=== PATIENT | female | born 1960 | race Caucasian/White ===

== ENCOUNTER 2024-10-05 16:22 | Observation (INO) ==
[2024-10-05 18:20] LABS: Basophils # (auto) 0.04 K/uL (0.00-0.20); Basophils % (auto) 0.5 %; Eosinophils # (auto) 0.17 K/uL (0.00-0.50); Eosinophils % (auto) 1.9 %; Hematocrit (blood only) 46.2 % (37.0-47.0); Hemoglobin 15.4 g/dl (12.0-16.0); Immature Granulocytes # (auto) 0.03 K/uL (0.01-0.20); Immature Granulocytes % (auto) 0.3 %; Lymphocytes # (auto) 3.94 K/uL (1.20-3.40); Lymphocytes % (auto) 44.6 %; Mean Corpuscular Hemoglobin 32.9 pg (25.0-34.0); Mean Corpuscular Hgb Conc 33.3 g/dL (32.0-36.0); Mean Corpuscular Volume 98.7 fL (80.0-100.0); Mean Platelet Volume 11.1 fL (9.4-12.4); Monocytes # (auto) 0.89 K/uL (0.11-0.59); Monocytes % (auto) 10.1 %; Neutrophils # (auto) 3.77 K/uL (1.40-6.50); Neutrophils % (auto) 42.6 %; Platelet Count 255 K/uL (130-400); RDW Coefficient of Variation 12.2 % (11.5-14.5); RDW Standard Deviation 44.9 fL (36.4-46.3); Red Blood Count 4.68 M/uL (4.20-5.40); White Blood Count 8.84 K/ul (4.8-10.8)
[2024-10-05 18:24] LABS: Albumin Globulin Ratio 1.4 (0.9-2); Albumin Level 4.3 gm/dl (3.4-5.0); BUN Creatinine Ratio 27.3 (10-20); Bilirubin,Total 0.4 mg/dl (0.2-1.0); Calcium 10.9 mg/dl (8.6-10.3); Creatinine Clr Calc Pharmacy 94.8 ml/min; Globulin 3.1 gm/dl (2.5-4.0); Potassium 4.4 mmol/L (3.5-5.1); Total Protein 7.4 gm/dl (6.0-8.3)
[2024-10-05 18:30] LABS: Troponin I High Sensitivity 18.5 pg/ml (0-14)
[2024-10-05 18:43] LABS: Partial Thromboplastin Ratio 0.9; Partial Thromboplastin Time 25 Seconds (21-31); Prothrombin Time 10.6 Seconds (9.0-12.0)
[2024-10-05] MEDS: ASPIRIN CHEW 324 MG PO STA (19:31)
--- NOTE | 2024-10-05 19:31 | History & Physical Report ---
Date of Service October 05, 2024 Assessment & Plan (1) Chest pain: (2) Hypercalcemia: Plan 64-year-old female PMHx hypothyroidism, HTN, hypercalcemia, hyperparathyroidism, and RAD presenting to ED for chest pain and shortness of breath. Was evaluated in ED on 09/29 for similar symptoms and was discharged from ED to home with inhaler. At 0200 started to develop central chest pain spreading across the entire chest with associated shortness of breath specifically when taking a deep breath. Symptoms are not exacerbated in any way, the chest pain did resolve slightly with carvedilol per patient. Evaluated by PCP who recommended coming to ED. Troponin was found to be slightly elevated on admission, but EKG without evidence of ischemia. CXR per my read is not showing gross signs of PNA or effusions, but does have increased vascularization. Patient was provided with 324 mg of aspirin in ED. 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 Currently chest pain free, no SOB or coughing at time of admission. Without h/o cardiac disease. - EKG NSR, possible LAE, LVH, rate 70 bpm; Troponin 18.5, pending repeat- will trend until peak - CBC without evidence of anemia or leukocytosis - CXR with increased vascularity per my read, pending official read; most recent echo from 12/2022 with normal LV systolic function, mild LVH, EF 65 to 70%, pending repeat - Lipids 09/2023, total 164, LDL 88, HDL 56, triglycerides 101; pending repeat a.m.; A1c a.m. - ASA 324 mg po given in ED - Tylenol po q4hr as needed; Maalox 30mL po q4hr indigestion as needed - Added IC + FV given SOB + ? mucus production with coughing - no indications for abx at time of admission - Cardiology not consulted at time of admission- recommend possible consult in a.m. +/- stress testing #Hypercalcemia, chronic Asymptomatic currently, with history of chronic hypercalcemia, identified January 2021. Per complaint specialist, no indications for surgical intervention as of most recent visit. - Ca 10.9 on admission (WNL albumin) - Patient does take vitamin D daily- continue; BMP am #Hypothyroidism/hyperparathyroidism H/o thyroid surgery ~ 6 years ago in [place] for goiter, w/o evidence of CA; history of hyperparathyroidism, follows with endocrinology most recently 06/11/2024. - Most recent TSH 0.6 (February 2024) - Levothyroxine (225mcg daily)- continue #HTN H/o HTN, follows with PCP but has seen hand tire trimmer in the past (2019); previously on HCTZ, but discontinued secondary to hypercalcemia - On carvedilol and valsartan- continue - Took daily medications - BP elevated upon arrival to ED; during time of visit, SBP 140s, DBP 70s - monitor #Prediabetes- A1c September 2022 at 6.3%, pending repeat; managed with diet #H/o endometrial CA- s/p hysterectomy (08/2018) Of note, patient speaks French; interpreting services via iPad and spike (Louisa) helped to translate at time of admission. Interpreting services should be made available to the patient at all times if needed. Louisa- To be called with changes/updates/concerns @ [phone] Dispo: Admit med/tele VTE prophylaxis: Lovenox This document was dictated utilizing [employer]. Please excuse any grammatical errors that may be secondary to use of this software. Admission and Anticipated Discharge Date Admission Date: 10/05/2024 History of Present Illness Chief Complaint: SOB + CP Primary Care Provider: Gale Welch MD 64-year-old female PMHx hypothyroidism, HTN, hypercalcemia, hyperparathyroidism, and RAD presenting to ED for chest pain and shortness of breath. Was evaluated in ED on 09/29 for similar symptoms and was discharged from ED to home with inhaler. Evaluated at PCP today and had mentioned that she was having chest pain and shortness of breath that started overnight, so PCP encouraged patient to come to ED. Pt's history is obtained via niece and hydrodynamicist service. States that her shortness of breath seem to have gotten better since her last ER visit, but then returned around 3 days ago and she has been coughing up some mucus that is clear in color. Additionally on the night prior to arrival at around 0200 she had severe sharp central chest pain that she felt spread across her entire chest. She believes that this pain improved when she took her carvedilol, but the pain continued to occur when she would take a deep breath. She had no additional symptoms of nausea/vomiting or abdominal pain, no diaphoresis. Was evaluated at PCP and mention that the chest pain was lingering, so PCP recommended to go to ED. While patient was in the waiting room, she started to have left scapular pain as well. States that this was minimal, but noticeable. Patient has not had this happen before. She is denying additional symptoms to include abdominal pain, N/V/D/C, indigestion, LUTS, fever/chills, dizzin ess/syncope, or URI symptoms. Upon workup, no leukocytosis, but troponin was found to be 18.5, pending repeat. EKG reveals no signs of ischemia. Patient was provided with aspirin 324 Mg in ED. Patient took daily medications. Please see Dr. Pina's attestation for adjustments/additions to treatment plan. Allergies Allergy/AdvReac Type Severity Reaction Status Date / Time Iodinated Contrast Media AdvReac Intermediate skin Verified 10/05/24 14:34 redness per pt and son hydrochlorothiazide AdvReac Mild high Verified 10/05/24 14:34 calcium Home Medications Medication Instructions Recorded Confirmed Type acetaminophen 500 mg tablet 1,000 mg PO DIRECTED PRN 01/24/22 10/05/24 History (Tylenol Extra Strength) PAIN/FEVER levothyroxine 25 mcg tablet 25 mcg PO QAM 04/15/24 10/05/24 History valsartan 320 mg tablet 320 mg PO QAM 04/15/24 10/05/24 History cholecalciferol (vitamin D3) 50 100 mcg PO QDL 05/12/24 10/05/24 History mcg (2,000 unit) capsule (Vitamin D3) levothyroxine 200 mcg tablet 200 mcg PO QAM #90 tabs 09/04/24 10/05/24 Rx carvedilol 6.25 mg tablet 6.25 mg PO BID #180 tabs 09/15/24 10/05/24 Rx Past Med/Surg History Problem List RAD (reactive airway disease) (Acute) Hypertension (Acute) H/O malignant neoplasm of endometrium Hypothyroidism History of colon polyps Vitamin D deficiency Knee osteoarthritis Knee pain, bilateral Dermatochalasis of eyelids of both eyes Drooping eyelid Hyperparathyroidism Post-COVID chronic fatigue Anxiety Hip pain, bilateral Hypercalcemia Prediabetes Arthralgia of right hip Degenerative arthritis of lumbar spine Grade I diastolic dysfunction Left ventricular dysfunction Urinary incontinence Back pain Hypertension (Chronic) Hypothyroidism (Chronic) Fatty liver Medical History Cataract Pain in both lower legs Stomach ulcer Vitamin D deficiency Prediabetes History of stomach ulcers Knee osteoarthritis Hyperparathyroidism Degenerative arthritis of lumbar spine History of back pain History of anxiety Fatty liver History of COVID-19 hx of 1 or 2 yr ago. Endometrial cancer 2016- denies hx cancer Hypertension Surgical History History of bilateral cataract extraction History of blepharoplasty bilateral 05/31/23 History of colonoscopy Hx laparoscopic cholecystectomy (05/31/20) Laparoscopic Cholecystectomy Dr. Alvarez 05/31/2020 History of hysterectomy History of esophagogastroduodenoscopy (EGD) History of dilatation and curettage History of thyroidectomy, total Family History Mother Hypertension Hypotension Denies family history of Ovarian cancer Prostate cancer Myocardial infarction Breast cancer Colorectal cancer Social History Smoking Status: Never smoker Second Hand Exposure: No; Do You Dip or Chew Tobacco: No; Hx Alcohol Use: No Hx Substance Use: No Preferred Language: French Communication Ability: Effective Communication Ability Comment: Phone interview with daughter- speaks fluent lithuanian Communication Tools: IPad and Language Line Engineer Internship Visual Impairment: No Limitations Engineer Internship Required: Yes Beliefs That Will Affect Care: None Current Living Situation: Family Current Living Situation Comment: son Other Information That Helps Us Care for You: No Feels Safe at Home: Yes Assistive Devices: Glasses Review of Systems Review of Systems: All systems reviewed & are unremarkable except as noted in Subjective Physical Exam Physical Exam: General: No acute distress Skin: Warm and dry, without rashes or lesions Head: Normocephalic, atraumatic Eyes: PERRL, conjunctivae clear, sclera non-icteric; EOM intact ENT: External ear and ear canal without swelling; nose atraumatic; good dentition, tongue normal appearance, pharynx normal without tonsillar swelling or exudate Neck: Supple, no LAD; No JVD Cardio: RRR, no M/G/R, S1 and S2 normal Resp: No respiratory distress, Lungs CTA in all lobes bilaterally, no wheezes, rales, or rhonchi Abdomen: Soft, symmetric, nontender; No distention; No masses or hepatosplenomegaly; Bowel sounds normoactive MSK: No deformities, full ROM throughout; pulses palpable and equal; no edema. Neuro: Awake, alert; Muscle strength 5/5 bilaterally in UE/LE; Sensation intact bilaterally; CN grossly intact; [place] negative. Psych: Appropriate mood and affect; good judgement and insight. Patient's niece present in room at time of visit, assists in history by translating; video call via interpreting services on iPad utilized as well. Results & Data Results & Data Vital Signs (Past 12 Hours) Vital Signs Temp Pulse Resp BP Pulse Ox O2 Del Method 10/05/24 16:35 36.8 C 78 16 188/96 H 96 Room Air Laboratory Results 10/05/24 16:43 WBC 8.84 RBC 4.68 Hgb 15.4 Hct 46.2 MCV 98.7 MCH 32.9 MCHC 33.3 RDW Std Deviation 44.9 RDW Coeff of Mica 12.2 Plt Count 255 MPV 11.1 Immature Gran % (Auto) 0.3 Neut % (Auto) 42.6 Lymph % (Auto) 44.6 [place] % (Auto) 10.1 Eos % (Auto) 1.9 Baso % (Auto) 0.5 Neut # (Auto) 3.77 Lymph # (Auto) 3.94 H [place] # (Auto) 0.89 H Eos # (Auto) 0.17 Baso # (Auto) 0.04 Immature Gran # (Auto) 0.03 PT 10.6 INR 1.0 APTT 25 PTT Ratio 0.9 Sodium 138 Potassium 4.4 Chloride 105 Carbon Dioxide 27 Anion Gap 6 BUN 18 Creatinine 0.66 Est Cr Clr Drug Dosing 94.8 eGFR 96.69 BUN/Creatinine Ratio 27.3 H Glucose 89 Calcium 10.9 H Total Bilirubin 0.4 AST 30 ALT 39 Alkaline Phosphatase 129 H Troponin I High Sens 18.5 H Total Protein 7.4 Albumin 4.3 Globulin 3.1 Albumin/Globulin Ratio 1.4 Medications Administered ASA 324mg po x 1 ECG Additional Comments: NSR, possible LAE, LVH 70 bpm, GA 144, QRS 102, QT/QTc 412/444, PRT 44/5/39 Code Status & VTE Plan Code Status Full Supervising Physician Co-Signing Physician Notes Attending addendum: I have physically seen this patient, have supervised the MARCELINO's activities, and agree with the H&P unless as otherwise noted. Assessment and Plan: The patient is a 64-year-old female with past medical history including h ypothyroidism, hypertension, hypercalcemia, hyperparathyroidism, reactive airway disease, history of malignant neoplasm of endometrium, and fatty liver. She initially presented to the emergency department on 09/29 for symptoms of central chest discomfort spread across her entire chest, shortness of breath, dyspnea on exertion. She presented emergency department again this evening, with similar symptoms, and was evaluated by her PCP to come to the ED for assessment. #Chest pain of uncertain etiology Patient describes pain as sharp, radiating across her entire chest, accompanied by shortness of breath and worse with dyspnea on exertion. At the time of assessment ED, she is no longer having chest discomfort. The patient will be admitted to telemetry for serial cardiac enzymes, serial EKG's, cardiac rhythm monitoring and a 2-D echocardiogram with Dopplers. Initial troponin mildly elevated 18.5 with follow-up pending EKG with normal sinus rhythm at 70, no acute ST-T changes, and LVH noted Given aspirin 324 mg from the ED Continue carvedilol and valsartan Acetaminophen 650 mg by mouth every 4 hours as needed for mild pain or fever Placed on low-level IV fluids overnight Patient should likely have stress echocardiogram prior to discharge if workup otherwise negative Chronic hypercalcemia/hyperparathyroidism- Calcium 10.9 on admission Follow serially for now, not likely contributing to symptoms Ongoing medical issues: Hypothyroidism- Continue levothyroxine 2025 mcg daily PG Care Time/CCT Total # of Minutes Spent Total Time Spent with Patient: Total time spent is greater than 50% in coordination of care (as documented) at patient's floor/unit and/or counseling patient: Coding Level of Care Code 61528 INT INP/OBS CARE 3/75MIN Diagnoses Chest pain, unspecified type R07.9 Chest pain type: unspecified Hypercalcemia E83.52 (1) Chest pain Chest pain type: unspecified Qualified Code(s): R07.9 - Chest pain, unspecified
--- NOTE | 2024-10-05 20:39 | XRay Report ---
Exam(s): XR CXR 1 VIEW EXAM: XR Chest, 1 View CLINICAL HISTORY: Reason for exam: Chest pain, nonspecific. TECHNIQUE: Frontal view of the chest. COMPARISON: September 28, 2024 FINDINGS: Lungs: Unremarkable. No consolidation. Pleural space: Unremarkable. No pneumothorax. Heart: Borderline cardiomegaly, similar to previous. Mediastinum: Unremarkable. Normal mediastinal contour. Bones/joints: Mild osteophytosis in the lower thoracic spine. No acute fracture. Upper abdomen: Surgical clips in the right upper quadrant of the abdomen. No pneumoperitoneum under the diaphragm. IMPRESSION: Borderline cardiomegaly, similar to previous. No acute cardiopulmonary process is identified. Electronically signed by: Blaise Hernandez MD 10/05/24 20:39 PM
--- NOTE | 2024-10-05 22:33 | Emergency Department Note ---
ED Provider Note CHIEF COMPLAINT: Chest pain HISTORY OF PRESENT ILLNESS: This 64-year-old female patient with past medical history of hypertension, obesity, hypothyroidism, prediabetes, fatty liver, presents emergency department with complaints of chest pain. The patient was seen about a week ago in the emergency department and thought to be suffering from a reactive airway process. Patient states things at home were largely okay with the exception of today when she had a substernal chest discomfort. Patient was not particularly active at that time. Patient was referred by the PCP back to the emergency department for further evaluation. She denies any recent fevers, chills, vomiting or diarrhea. REVIEW OF SYSTEMS: A review of systems was performed with positives and pertinent negatives listed in the history of present illness. 10 systems were reviewed and are otherwise negative. ALLERGIES: see below MEDICATIONS: see below PMH: see below SOCIAL HISTORY: see below DDx: Acute coronary syndrome, PHYSICAL EXAM: Vital signs reviewed. General: Well-appearing 64-year-old female, in no significant distress. HEENT: No scleral icterus, PERRLA, neck supple. moist mucous membranes Cardiovascular: Regular rate and rhythm, no extra sounds. Pulmonary: Clear to auscultation bilaterally, normal work of breathing. Abdomen: Soft, obese, nontender, nondistended, positive bowel sounds. Musculoskeletal: Atraumatic, no peripheral edema. Neurologic: Patient awake alert and oriented x 3, speech is clear Skin: Warm, dry, no rash EMERGENCY DEPARTMENT COURSE/MDM: [] MONITORING: An order for cardiac monitoring was placed and the patient is noted to be in a normal sinus rhythm at 69 beats per minute. RADIOLOGY: Chest x-ray to my interpretation reveals no evidence of focal lung consolidation or failure. EKG: To my interpretation reveals normal sinus rhythm at [address] segments. DISPOSITION: admission Past Med/Surg History Problem List RAD (reactive airway disease) (Acute) Hypertension (Acute) H/O malignant neoplasm of endometrium Hypothyroidism History of colon polyps Vitamin D deficiency Knee osteoarthritis Knee pain, bilateral Dermatochalasis of eyelids of both eyes Drooping eyelid Hyperparathyroidism Post-COVID chronic fatigue Anxiety Hip pain, bilateral Hypercalcemia Prediabetes Arthralgia of right hip Degenerative arthritis of lumbar spine Grade I diastolic dysfunction Left ventricular dysfunction Urinary incontinence Back pain Hypertension (Chronic) Hypothyroidism (Chronic) Fatty liver Medical History Cataract Pain in both lower legs Stomach ulcer Vitamin D deficiency Prediabetes History of stomach ulcers Knee osteoarthritis Hyperparathyroidism Degenerative arthritis of lumbar spine History of back pain History of anxiety Fatty liver History of COVID-19 hx of 1 or 2 yr ago. Endometrial cancer 2016- denies hx cancer Hypertension Surgical History History of bilateral cataract extraction History of blepharoplasty bilateral 05/31/23 History of colonoscopy Hx laparoscopic cholecystectomy (05/31/20) Laparoscopic Cholecystectomy Dr. Alvarez 05/31/2020 History of hysterectomy History of esophagogastroduodenoscopy (EGD) History of dilatation and curettage History of thyroidectomy, total Family History Mother Hypertension Hypotension Denies family history of Ovarian cancer Prostate cancer Myocardial infarction Breast cancer Colorectal cancer Social History Smoking Status: Never smoker Second Hand Exposure: No; Do You Dip or Chew Tobacco: No; Hx Alcohol Use: No Hx Substance Use: No Preferred Language: Welsh Communication Ability: Effective Communication Ability Comment: Phone interview with daughter- speaks fluent nauruan Communication Tools: IPad and Language Line Head Girls Golf Coach Visual Impairment: No Limitations Head Girls Golf Coach Required: Yes Beliefs That Will Affect Care: None Current Living Situation: Family Current Living Situation Comment: son Feels Safe at Home: Yes Assistive Devices: Glasses Allergies Allergies Allergy/AdvReac Type Severity Reaction Status Date / Time Iodinated Contrast Media AdvReac Intermediate skin Verified 10/05/24 14:34 redness per pt and son hydrochlorothiazide AdvReac Mild high Verified 10/05/24 14:34 calcium Home Meds Home Medications Medication Instructions Recorded Confirmed acetaminophen 500 mg tablet 1,000 mg PO DIRECTED PRN 01/24/22 10/05/24 (Tylenol Extra Strength) PAIN/FEVER levothyroxine 25 mcg tablet 25 mcg PO QAM 04/15/24 10/05/24 valsartan 320 mg tablet 320 mg PO QAM 04/15/24 10/05/24 cholecalciferol (vitamin D3) 50 100 mcg PO QDL 05/12/24 10/05/24 mcg (2,000 unit) capsule (Vitamin D3) Previous Rx's Medication Instructions Recorded levothyroxine 200 mcg tablet 200 mcg PO QAM #90 tabs 09/04/24 carvedilol 6.25 mg tablet 6.25 mg PO BID #180 tabs 09/15/24 Results & Data (ED) Vital Signs Vital Signs - 24 hr 10/05/24 16:35 10/05/24 19:36 10/05/24 19:42 Temperature 36.8 C Temperature Source Temporal Artery Scan Pulse Rate 78 68 Pulse Rate [Apical] 69 Respiratory Rate 16 16 Respiratory Effort / Characteristics Non-Labored Spontaneous Respiratory Depth Normal Respiratory Pattern Regular Blood Pressure 188/96 H Blood Pressure [Right Arm] 162/82 H Blood Pressure Mean 126 Blood Pressure Mean [Right Arm] 108 Blood Pressure Position Sitting Pulse Oximetry 96 100 Oxygen Delivery Method Room Air Room Air Sepsis Recent Fever Within 48 Hours No Sepsis New/Unexplained Change in Mental Status N/A Sepsis Action Taken by Nursing No Action Required 10/05/24 21:16 Temperature Temperature Source Pulse Rate Pulse Rate [Apical] 71 Respiratory Rate 17 Respiratory Effort / Characteristics Respiratory Depth Respiratory Pattern Blood Pressure Blood Pressure [Right Arm] 152/86 H Blood Pressure Mean Blood Pressure Mean [Right Arm] 108 Blood Pressure Position Pulse Oximetry 100 Oxygen Delivery Method Sepsis Recent Fever Within 48 Hours Sepsis New/Unexplained Change in Mental Status Sepsis Action Taken by Residential Medications Current Medication List: was personally reviewed by me Laboratory Data Attestation: I reviewed the patient's lab results. 10/05/24 16:43 10/05/24 16:43 Lab Results 10/05/24 Range/Units 16:43 WBC 8.84 (4.8-10.8) K/ul RBC 4.68 (4.20-5.40) M/uL Hgb 15.4 (12.0-16.0) g/dl Hct 46.2 (37.0-47.0) % MCV 98.7 (80.0-100.0) fL MCH 32.9 (25.0-34.0) pg MCHC 33.3 (32.0-36.0) g/dL RDW Std Deviation 44.9 (36.4-46.3) fL RDW Coeff of Mica 12.2 (11.5-14.5) % Plt Count 255 (130-400) K/uL MPV 11.1 (9.4-12.4) fL Immature Gran % (Auto) 0.3 % Neut % (Auto) 42.6 % Lymph % (Auto) 44.6 % [place] % (Auto) 10.1 % Eos % (Auto) 1.9 % Baso % (Auto) 0.5 % Neut # (Auto) 3.77 (1.40-6.50) K/uL Lymph # (Auto) 3.94 H (1.20-3.40) K/uL [place] # (Auto) 0.89 H (0.11-0.59) K/uL Eos # (Auto) 0.17 (0.00-0.50) K/uL Baso # (Auto) 0.04 (0.00-0.20) K/uL Immature Gran # (Auto) 0.03 (0.01-0.20) K/uL PT 10.6 (9.0-12.0) Seconds INR 1.0 (0.9-1.1) APTT 25 (21-31) Seconds PTT Ratio 0.9 Sodium 138 (136-145) mmol/L Potassium 4.4 (3.5-5.1) mmol/L Chloride 105 (98-107) mmol/L Carbon Dioxide 27 (21-32) mmol/L Anion Gap 6 (3-11) BUN 18 (6-23) mg/dl Creatinine 0.66 (0.6-1.2) mg/dl Est Cr Clr Drug Dosing 94.8 ml/min eGFR 96.69 BUN/Creatinine Ratio 27.3 H (10-20) Glucose 89 (70-99(Fasting)) mg/dl Calcium 10.9 H (8.6-10.3) mg/dl Total Bilirubin 0.4 (0.2-1.0) mg/dl AST 30 (13-39) U/L ALT 39 (7-52) U/L Alkaline Phosphatase 129 H (34-104) U/L Troponin I High Sens 18.5 H (0-14) pg/ml Total Protein 7.4 (6.0-8.3) gm/dl Albumin 4.3 (3.4-5.0) gm/dl Globulin 3.1 (2.5-4.0) gm/dl Albumin/Globulin Ratio 1.4 (0.9-2) Administered Medications Discontinued Medications Aspirin (Aspirin Chew 324 Mg) 324 mg PO NOW STA Stop: 10/05/24 18:59 Last Admin: 10/05/24 19:31 Dose: 324 mg Documented By: [facility] Imaging Data Radiologist's Impression: Chest X-Ray 10/05/24 18:00 Exam(s): XR CXR 1 VIEW EXAM: XR Chest, 1 View CLINICAL HISTORY: Reason for exam: Chest pain, nonspecific. TECHNIQUE: Frontal view of the chest. COMPARISON: September 28, 2024 FINDINGS: Lungs: Unremarkable. No consolidation. Pleural space: Unremarkable. No pneumothorax. Heart: Borderline cardiomegaly, similar to previous. Mediastinum: Unremarkable. Normal mediastinal contour. Bones/joints: Mild osteophytosis in the lower thoracic spine. No acute fracture. Upper abdomen: Surgical clips in the right upper quadrant of the abdomen. No pneumoperitoneum under the diaphragm. IMPRESSION: Borderline cardiomegaly, similar to previous. No acute cardiopulmonary process is identified. Electronically signed by: Blaise Hernandez MD 10/05/24 20:39 PM Discharge Plan Visit Data Chief Complaint: Shortness of Breath/Dyspnea Stated Complaint: SOB, WEAKNESS ED Provider: Mercedez Salazar Forms Stand Alone Forms: [employer] Prescriptions Prescriptions: No Action levothyroxine 200 mcg tablet 200 mcg PO QAM Qty: 90 3RF carvedilol 6.25 mg tablet 6.25 mg PO BID Qty: 180 3RF cholecalciferol (vitamin D3) [Vitamin D3] 50 mcg (2,000 unit) capsule 100 mcg PO QDL acetaminophen [Tylenol Extra Strength] 500 mg Tablet 1,000 mg PO DIRECTED PRN (Reason: PAIN/FEVER) levothyroxine 25 mcg tablet 25 mcg PO QAM valsartan 320 mg tablet 320 mg PO QAM Referrals Referrals: Gale Welch MD [Primary Care Provider] -
[2024-10-05] MEDS ORDERED: ACETAMINOPHEN 500 MG TAB PO PRN (23:44)
[2024-10-05] MEDS ORDERED: ONDANSETRON INJ 2 MG/ML 2 ML VIAL IV PRN (23:44)
[2024-10-05] MEDS ORDERED: POLYETHYLENE (MIRALAX) 17 GM PACK PO PRN (23:44)
[2024-10-05] MEDS ORDERED: ALUMINUM/MAGNESIUM SUSP 30 ML UDC PO PRN (23:44)
[2024-10-06] MEDS: carvediloL 6.25 MG TAB PO SCH (01:47)
[2024-10-06 02:07] LABS: Hematocrit (blood only) 40.3 % (37.0-47.0); Hemoglobin 13.6 g/dl (12.0-16.0); Mean Corpuscular Hemoglobin 32.9 pg (25.0-34.0); Mean Corpuscular Hgb Conc 33.7 g/dL (32.0-36.0); Mean Corpuscular Volume 97.3 fL (80.0-100.0); Mean Platelet Volume 10.4 fL (9.4-12.4); Platelet Count 215 K/uL (130-400); RDW Standard Deviation 43.6 fL (36.4-46.3); Red Blood Count 4.14 M/uL (4.20-5.40); White Blood Count 6.71 K/ul (4.8-10.8)
[2024-10-06 02:32] LABS: Calcium 10.1 mg/dl (8.6-10.3); Chol HDL Ratio 3.1 (0-5); Creatinine Clr Calc Pharmacy 104.3 ml/min; Potassium 4.1 mmol/L (3.5-5.1)
[2024-10-06] MEDS: LEVOTHYROXINE SODIUM 25 MCG TABLET PO SCH (06:32)
[2024-10-06] MEDS: LEVOTHYROXINE SODIUM 200 MCG TABLET PO SCH (06:32)
[2024-10-06] MEDS: ENOXAPARIN INJ 40 MG/0.4 ML SYR SQ SCH (06:32)
[2024-10-06 07:30] LABS: Estimated Average Glucose 134 mg/dl; Hemoglobin A1C 6.3 % (4.5-5.6)
[2024-10-06 07:43] VITALS: RESP 18
--- NOTE | 2024-10-06 08:12 | Hospitalist Progress Note ---
Date of Service October 06, 2024 Assessment & Plan (1) Chest pain: (2) Hypercalcemia: Plan 64-year-old female PMHx hypothyroidism, HTN, hypercalcemia, hyperparathyroidism, and RAD presenting to ED for chest pain and shortness of breath. Was evaluated in ED on 09/29 for similar symptoms and was discharged from ED to home with inhaler. At 0200 started to develop central chest pain spreading across the entire chest with associated shortness of breath specifically when taking a deep breath. Symptoms are not exacerbated in any way, the chest pain did resolve slightly with carvedilol per patient. Evaluated by PCP who recommended coming to ED. Troponin was found to be slightly elevated on admission, but EKG without evidence of ischemia. CXR per my read is not showing gross signs of PNA or effusions, but does have increased vascularization. Patient was provided with 324 mg of aspirin in ED. 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 Currently chest pain free, no SOB or coughing at time of admission. Without h/o cardiac disease. - EKG NSR, possible LAE, LVH, rate 70 bpm; Troponin 18.5, pending repeat- will trend until peak - CBC without evidence of anemia or leukocytosis - CXR with increased vascularity per my read, pending official read; most recent echo from 12/2022 with normal LV systolic function, mild LVH, EF 65 to 70%, pending repeat - Lipids 09/2023, total 164, LDL 88, HDL 56, triglycerides 101; pending repeat a.m.; A1c a.m. - ASA 324 mg po given in ED - Tylenol po q4hr as needed; Maalox 30mL po q4hr indigestion as needed - Added IC + FV given SOB + ? mucus production with coughing - no indications for abx at time of admission Troponin 18.5--> 13.6--> 13.4 Cardiology consulted for possible stress testing #Hypercalcemia, chronic Asymptomatic currently, with history of chronic hypercalcemia, identified January 2021. Per lastex operator, no indications for surgical intervention as of most recent visit. - Ca 10.9 on admission (WNL albumin) - Patient does take vitamin D daily- continue; BMP am #Hypothyroidism/hyperparathyroidism H/o thyroid surgery ~ 6 years ago in [place] for goiter, w/o evidence of CA; history of hyperparathyroidism, follows with endocrinology most recently 06/11/2024. 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 Interpreting services should be made available to the patient at all times if needed. Louisa- To be called with changes/updates/concerns @ [phone] Dispo: Admit med/tele VTE prophylaxis: Lovenox This document was dictated utilizing [employer]. Please excuse any grammatical errors that may be secondary to use of this software. Admission and Anticipated Discharge Date Admission Date: October 05, 2024 Results & Data Results & Data Vital Signs (Past 12 Hours) Vital Signs Temp Pulse Pulse Pulse Resp BP BP 10/06/24 07:42 36.6 C 75 18 137/79 10/06/24 03:30 36.4 C L 75 16 120/65 10/05/24 23:48 63 10/05/24 23:30 10/05/24 23:30 36.5 C 73 16 179/98 H 10/05/24 23:06 67 18 153/88 H 10/05/24 21:16 71 17 152/86 H Pulse Ox O2 Del Method 10/06/24 07:42 98 Room Air 10/06/24 03:30 93 Room Air 10/05/24 23:48 10/05/24 23:30 Room Air 10/05/24 23:30 98 Room Air 10/05/24 23:06 93 Room Air 10/05/24 21:16 100 PG Care Time/CCT Total # of Minutes Spent Total Time Spent with Patient: Total time spent is greater than 50% in coordination of care (as documented) at patient's floor/unit and/or counseling patient: Coding Diagnoses Chest pain, unspecified type R07.9 Chest pain type: unspecified Hypercalcemia E83.52 (1) Chest pain Chest pain type: unspecified Qualified Code(s): R07.9 - Chest pain, unspecified
[2024-10-06] MEDS: VALSARTAN 80 MG TAB PO SCH (09:36)
[2024-10-06 10:00] LABS: Magnesium 1.8 mg/dl (1.7-2.4)
--- NOTE | 2024-10-06 10:07 | XCELERA ---
[id number]
[2024-10-06 10:15] LABS: Thyroid Stimulating Hormone 0.357 uIu/ml (0.300-4.500)
--- NOTE | 2024-10-06 10:16 | Cardiology Consultation ---
Date of Consultation October 06, 2024 Assessment & Plan (1) Chest pain: (2) Mitral regurgitation: Plan 1. Chest pain: Her chest pain is atypical in the sense that it lasted for well over an hour but there was no rise in cardiac biomarkers. Also not exertional in nature. Unclear etiology overall. No prominent gastrointestinal symptoms. Very possibly musculoskeletal. These episodes appear to be rare and infrequent. Her prior emergency room visit seem to be more related to breathing difficulty. Lung examination, cardiac examination, biomarkers and echocardiogram all unremarkable. I do not think she requires additional cardiac testing at this point. I would recommend continued cardiac respective modification in the outpatient setting. 2. Mitral digitation: Mild. No murmur on examination. This can be followed over time. Possible repeat echocardiogram in 3 to 5 years. History of Present Illness Reason for Consultation: Chest pain Requesting Physician: Elza Attending Physician: Heriberto Rosas MD History of Present Illness The patient is a 64-year-old woman without a known history of cardiac disease who presented to the hospital with symptoms of chest discomfort. She speaks limited [place]ib[place]ian and today's interview was facilitated with a proprietary lang interpreter service. Patient states that her symptoms began in the evening. She describes this as an aching sensation throughout the precordium and into the back. It was associated with some mild dyspnea. Specifically difficulty taking a deep breath. Symptoms not appear to be exclusively pleuritic in nature. She could not get comfortable even with changes in position. She walked around and sat up for a while before her symptoms eventually improved. She did take a carvedilol at home and this seemed to help her symptoms. She states that the symptoms lasted at least an hour and a half before resolving. She presented to the emergency room with somewhat different complaint on 09/29/2024. At that time her symptoms appear to be more breathing difficulty. She was felt to have an element of reactive airway disease and prescribed an inhaler. In general she is a sedentary individual. She does less activity in the wintertime. She does do some walking when the weather is nice. She does not have exertional symptoms. She is specifically denied other episodes of chest pain or chest pain with exertion. No limiting dyspnea. No orthopnea. No palpitations. No dizziness or lightheadedness. Currently feeling well. Perhaps anxious, but no breathing difficulty or chest discomfort. Allergies Allergy/AdvReac Type Severity Reaction Status Date / Time Iodinated Contrast Media AdvReac Intermediate skin Verified 10/05/24 14:34 redness per pt and son hydrochlorothiazide AdvReac Mild high Verified 10/05/24 14:34 calcium Home Medications Medication Instructions Recorded Confirmed Type acetaminophen 500 mg tablet 1,000 mg PO DIRECTED PRN 01/24/22 10/05/24 History (Tylenol Extra Strength) PAIN/FEVER levothyroxine 25 mcg tablet 25 mcg PO QAM 04/15/24 10/05/24 History valsartan 320 mg tablet 320 mg PO QAM 04/15/24 10/05/24 History cholecalciferol (vitamin D3) 50 100 mcg PO QDL 05/12/24 10/05/24 History mcg (2,000 unit) capsule (Vitamin D3) levothyroxine 200 mcg tablet 200 mcg PO QAM #90 tabs 09/04/24 10/05/24 Rx carvedilol 6.25 mg tablet 6.25 mg PO BID #180 tabs 09/15/24 10/05/24 Rx Patient History Medical History Cataract Pain in both lower legs Stomach ulcer Vitamin D deficiency Prediabetes History of stomach ulcers Knee osteoarthritis Hyperparathyroidism Degenerative arthritis of lumbar spine History of back pain History of anxiety Fatty liver History of COVID-19 hx of 1 or 2 yr ago. Endometrial cancer 2016- denies hx cancer Hypertension Surgical History History of bilateral cataract extraction History of blepharoplasty bilateral 05/31/23 History of colonoscopy Hx laparoscopic cholecystectomy (05/31/20) Laparoscopic Cholecystectomy Dr. Alvarez 05/31/2020 History of hysterectomy History of esophagogastroduodenoscopy (EGD) History of dilatation and curettage History of thyroidectomy, total Family History Mother Hypertension Hypotension Denies family history of Ovarian cancer Prostate cancer Myocardial infarction Breast cancer Colorectal cancer Social History Smoking Status: Never smoker Second Hand Exposure: No; Do You Dip or Chew Tobacco: No; Hx Alcohol Use: No Hx Substance Use: No Preferred Language: [place]an Communication Ability: Effective Communication Ability Comment: Phone interview with daughter- speaks fluent amharic Communication Tools: IPad and Language Line Senior Pricing Analyst Visual Impairment: No Limitations Senior Pricing Analyst Required: Yes Beliefs That Will Affect Care: None Current Living Situation: Family Current Living Situation Comment: son Other Information That Helps Us Care for You: No Feels Safe at Home: Yes Assistive Devices: Glasses Review of Systems Review of Systems: Per HPI. No recent constitutional symptoms such as fevers or chills. No nausea or abdominal discomfort. No upper respiratory symptoms or coughing. Physical Exam Physical Exam: She is alert and oriented x3. Mood affect appear normal. She answered all questions appropriately. HEENT: Sclerae are anicteric. Pupils are equal and reactive to light and accommodation. Extraocular movements were intact. Neuro: Cranial nerves intact Neck: Examination of the submandibular region did not reveal any significant lymphadenopathy. Carotids are palpable bilaterally and free of bruits on auscultation. There was no evidence of jugular venous distention. The thyroid was not enlarged. Lungs: Lungs are clear to auscultation bilaterally. There are no rales wheezes or rhonchi. She has normal respiratory effort without use of accessory muscles. There is normal pulmonary excursion. Cardiac: The rhythm was regular. S1 and S2 were normal. There are no murmurs on examination. The PMI was not markedly displaced on palpation. Extremities: Patient has bilateral radial pulses that are equal in intensity. There is no evidence cyanosis or clubbing. There was no evidence of significant peripheral edema bilaterally. Skin: There are no rashes noted on examination today. Results & Data Vital Signs (Past 12 Hours) Vital Signs Temp Pulse Pulse Pulse Resp BP BP 10/06/24 07:42 36.6 C 75 18 137/79 10/06/24 03:30 36.4 C L 75 16 120/65 10/05/24 23:48 63 10/05/24 23:30 10/05/24 23:30 36.5 C 73 16 179/98 H 10/05/24 23:06 67 18 153/88 H Pulse Ox O2 Del Method 10/06/24 07:42 98 Room Air 10/06/24 03:30 93 Room Air 10/05/24 23:48 10/05/24 23:30 Room Air 10/05/24 23:30 98 Room Air 10/05/24 23:06 93 Room Air Laboratory Results Abnormal Lab Results 10/05/24 10/05/24 10/06/24 16:43 22:03 01:49 WBC 8.84 6.71 RBC 4.68 4.14 L Hgb 15.4 13.6 Hct 46.2 40.3 MCV 98.7 97.3 MCH 32.9 32.9 MCHC 33.3 33.7 RDW Std Deviation 44.9 43.6 RDW Coeff of Mica 12.2 12.0 Plt Count 255 215 MPV 11.1 10.4 Immature Gran % (Auto) 0.3 Neut % (Auto) 42.6 Lymph % (Auto) 44.6 [place] % (Auto) 10.1 Eos % (Auto) 1.9 Baso % (Auto) 0.5 Neut # (Auto) 3.77 Lymph # (Auto) 3.94 H [place] # (Auto) 0.89 H Eos # (Auto) 0.17 Baso # (Auto) 0.04 Immature Gran # (Auto) 0.03 PT 10.6 INR 1.0 APTT 25 PTT Ratio 0.9 Sodium 138 139 Potassium 4.4 4.1 Chloride 105 107 Carbon Dioxide 27 26 Anion Gap 6 6 BUN 18 15 Creatinine 0.66 0.60 Est Cr Clr Drug Dosing 94.8 104.3 eGFR 96.69 98.93 BUN/Creatinine Ratio 27.3 H 25.0 H Glucose 89 94 Estimat Average Glucose 134 Hemoglobin A1c 6.3 H Calcium 10.9 H 10.1 Magnesium Total Bilirubin 0.4 AST 30 ALT 39 Alkaline Phosphatase 129 H Troponin I High Sens 18.5 H 13.6 D 13.4 Total Protein 7.4 Albumin 4.3 Globulin 3.1 Albumin/Globulin Ratio 1.4 Triglycerides 101 Cholesterol 151 LDL Cholesterol, Calc 83 VLDL Cholesterol, Calc 20 HDL Cholesterol 48 Cholesterol/HDL Ratio 3.1 10/06/24 09:04 WBC RBC Hgb Hct MCV MCH MCHC RDW Std Deviation RDW Coeff of Mica Plt Count MPV Immature Gran % (Auto) Neut % (Auto) Lymph % (Auto) [place] % (Auto) Eos % (Auto) Baso % (Auto) Neut # (Auto) Lymph # (Auto) [place] # (Auto) Eos # (Auto) Baso # (Auto) Immature Gran # (Auto) PT INR APTT PTT Ratio Sodium Potassium Chloride Carbon Dioxide Anion Gap BUN Creatinine Est Cr Clr Drug Dosing eGFR BUN/Creatinine Ratio Glucose Estimat Average Glucose Hemoglobin A1c Calcium Magnesium 1.8 Total Bilirubin AST ALT Alkaline Phosphatase Troponin I High Sens 9.7 Total Protein Albumin Globulin Albumin/Globulin Ratio Triglycerides Cholesterol LDL Cholesterol, Calc VLDL Cholesterol, Calc HDL Cholesterol Cholesterol/HDL Ratio Diagnostic Findings Chest x-ray obtained at the time admission not really acute cardiopulmonary process Echocardiogram obtained today revealed preserved LV systolic function and wall motion. Mildly regurgitation. Stage I diastolic dysfunction. ECG Additional Comments: EKG obtained at time admission revealed normal sinus rhythm. Normal study. PG Care Time/CCT Total # of Minutes Spent Total Time Spent with Patient: Total time spent is greater than 50% in coordination of care (as documented) at patient's floor/unit and/or counseling patient: Coding Level of Care Code 28374 INT INP/OBS CARE 3/75MIN Diagnoses Chest pain, unspecified type R07.9 Chest pain type: unspecified Mitral regurgitation I34.0 (1) Chest pain Chest pain type: unspecified Qualified Code(s): R07.9 - Chest pain, unspecified
[2024-10-06 11:11] LABS: Adenovirus PCR Not Detected (NotDetected); Bordetella parapertussis PCR Not Detected (NotDetected); Bordetella pertussis PCR Not Detected (NotDetected); Chlamydia pneumoniae PCR Not Detected (NotDetected); Coronavirus 229E PCR Not Detected (NotDetected); Coronavirus CoV-2 (COVID19)PCR Not Detected (NotDetected); Coronavirus HKU1 PCR Not Detected (NotDetected); Coronavirus NL63 PCR Not Detected (NotDetected); Coronavirus OC43PCR Not Detected (NotDetected); Human Metapneumovirus PCR Not Detected (NotDetected); Influenza A PCR Not Detected (NotDetected); Influenza B PCR Not Detected (NotDetected); Mycoplasma pneumoniae PCR Not Detected (NotDetected); Parainfluenza Virus 1 PCR Not Detected (NotDetected); Parainfluenza Virus 2 PCR Not Detected (NotDetected); Parainfluenza Virus 3 PCR Not Detected (NotDetected); Parainfluenza Virus 4 PCR Not Detected (NotDetected); Respiratory Syncytial VirusPCR Not Detected (NotDetected); Rhinovirus/Enterovirus PCR Not Detected (NotDetected)
[2024-10-06 11:45] VITALS: BP 132/77; TEMP 97.7; O2SAT 96
[2024-10-06] MEDS: CHOLECALCIFEROL 25 MCG (1000 UNITS) TAB PO SCH (12:58)
--- NOTE | 2024-10-06 13:52 | Discharge Summary ---
Discharge Summary Date of Service October 06, 2024 Principal Dx & Hospital Course #1 = Principal Diagnosis (1) Chest pain: (2) Hypercalcemia: Plan 64-year-old female PMHx hypothyroidism, HTN, hypercalcemia, hyperparathyroidism, and RAD presenting to ED for chest pain and shortness of breath. Was evaluated in ED on 09/29 for similar symptoms and was discharged from ED to home with inhaler. At 0200 started to develop central chest pain spreading across the entire chest with associated shortness of breath specifically when taking a deep breath. Symptoms are not exacerbated in any way, the chest pain did resolve slightly with carvedilol per patient. Evaluated by PCP who recommended coming to ED. Troponin was found to be slightly elevated on admission, but EKG without evidence of ischemia. CXR per my read is not showing gross signs of PNA or effusions, but does have increased vascularization. Patient was provided with 324 mg of aspirin in ED. 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 Biofire negative On admission, chest pain free, no SOB or coughing at time of admission. Without h/o cardiac disease. Notable BP was elevated to 188/96 on admission but 120/65, 137/79, 132/77 on repeat testing prior to discharge EKG w/ NSR, possible LAE> Rate 70bpm Initial troponin 18.5, trended down 13.6--> 13.4 and remained CP free CXR w increased vascularity however read no acute process, borderline cardiomegaly ECHO w/ LV systolic function normal, grade I diastolic dysfunction. Mild MR Lipid panel acceptable TRG 101, Cholesterol 151, LDL 83, HDL 48 A1c mild elevation 6.3 -- follow up with PCP, consideration for metformin once daily for risk prevention Cardiology consulted for possible stress testing -> >defers any additional testing. Suspected possible MSK vs anxiety Discussed with patient via ipad field sales agent and no CP/SOB and wanting to go home. Updated cha CHRISTIANSON per patient request in room and recommendation for monitoring her BP at home however has been much better controlled since admission however recommended to continue to monitor and if systolic BP >160 or diastolic BP >90 may need further adjustment to her BP medications in follow up. Messaged primary care provider who sent in regarding case, prior CXR w/ opacities but negative biofire but could have had another viral process this past week. Does not appear w/ pericarditis on exam and stable for discharge but notable BP was elevated as above to 188/96 on admission and if remains elevated in outpatient setting should have further adjustment to HTN medications. No issues on telemetry and was NSR in 60-70s. #HTN H/o HTN, follows with PCP but has seen gray mixing operator in the past (2019); previously on HCTZ, but discontinued secondary to hypercalcemia Continued on carvedilol, valsartan BPs much better than on admission past 12 hours prior to dc and continued both but recommended continued BP monitoring/PCP follow up for additional titration if needed. Cardiology was consulted while inpatient above/no further work-up indicated per their evaluation. Consider stress testing outpt could be considered #Hypercalcemia, chronic Asymptomatic currently, with history of chronic hypercalcemia, identified January 2021. Per cooler man, no indications for surgical intervention as of most recent visit. - Ca 10.9 on admission (WNL albumin) --> repeat 10.1. Vit D level 53.4 and remains on supplementation. F/u endo outpt #Hypothyroidism/hyperparathyroidism H/o thyroid surgery ~ 6 years ago in [place] for goiter, w/o evidence of CA; history of hyperparathyroidism, follows with endocrinology most recently 06/11/2024. - Most recent TSH 0.6 (February 2024) --> repeat wnl 0.357 and continues Synthroid 225mcg daily #Prediabetes- A1c September 2022 at 6.3%, repeat unchanged --> consider start once daily metformin in f/u #H/o endometrial CA- s/p hysterectomy (08/2018) VTE prophylaxis: Lovenox while inpatient Notes For Next Care Provider Consider further titration in HTN medications pending repeat measurements as was elevated on admission but much better prior to dc and deferred Consider once daily metformin for pre-DM given A1c unchanged Repeat ECHO 3-5 years for mild MR on ECHO Medication Changes From Visit None Admission HPI Per Admitting Provider 64-year-old female PMHx hypothyroidism, HTN, hypercalcemia, hyperparathyroidism, and RAD presenting to ED for chest pain and shortness of breath. Was evaluated in ED on 09/29 for similar symptoms and was discharged from ED to home with inhaler. Evaluated at PCP today and had mentioned that she was having chest pain and shortness of breath that started overnight, so PCP encouraged patient to come to ED. Pt's history is obtained via niece and field sales agent service. States that her shortness of breath seem to have gotten better since her last ER visit, but then returned around 3 days ago and she has been coughing up some mucus that is clear in color. Additionally on the night prior to arrival at around 0200 she had severe sharp central chest pain that she felt spread across her entire chest. She believes that this pain improved when she took her carvedilol, but the pain continued to occur when she would take a deep breath. She had no additional symptoms of nausea/vomiting or abdominal pain, no diaphoresis. Was evaluated at PCP and mention that the chest pain was lingering, so PCP recommended to go to ED. While patient was in the waiting room, she started to have left scapular pain as well. States that this was minimal, but noticeable. Patient has not had this happen before. She is denying additional symptoms to include abdominal pain, N/V/D/C, indigestion, LUTS, fever/chills, dizziness/syncope, or URI symptoms. Upon workup, no leukocytosis, but troponin was found to be 18.5, pending repeat. EKG reveals no signs of ischemia. Patient was provided with aspirin 324 Mg in ED. Patient took daily medications. Please see Dr. Pina's attestation for adjustments/additions to treatment plan. Admission Exam Per Admitting Provider General: No acute distress Skin: Warm and dry, without rashes or lesions Head: Normocephalic, atraumatic Eyes: PERRL, conjunctivae clear, sclera non-icteric; EOM intact ENT: External ear and ear canal without swelling; nose atraumatic; good dentition, tongue normal appearance, pharynx normal without tonsillar swelling or exudate Neck: Supple, no LAD; No JVD Cardio: RRR, no M/G/R, S1 and S2 normal Resp: No respiratory distress, Lungs CTA in all lobes bilaterally, no wheezes, rales, or rhonchi Abdomen: Soft, symmetric, nontender; No distention; No masses or hepatosplenomegaly; Bowel sounds normoactive MSK: No deformities, full ROM throughout; pulses palpable and equal; no edema. Neuro: Awake, alert; Muscle strength 5/5 bilaterally in UE/LE; Sensation intact bilaterally; CN grossly intact; Chvostek negative. Psych: Appropriate mood and affect; good judgement and insight. Patient's niece present in room at time of visit, assists in history by clifford shannon; video call via interpreting services on iPad utilized as well. Discharge Exam General: WD/WN female sitting up in bed, eating lunch, NAD, wanting to go home HEENT head atraumatic, normocphealic, mmm Resp: even/unlabored, no w/c/r, 96% on RA CV: RRR, no significant m/r/g, no pitting edema GI: +BS, soft/NT no jimenez MSK/Neuro: not confused, no slurred speech, no facial droop, answering questions apppropriately Psych: AOx3, cooperative with exam Ipad field sales agent utilized during encounter Discharge Plan Discharge Items Patient Disposition: Home - Self-Care Reason For Visit: CHEST PAIN Discharge Diagnosis: Chest pain Goals: You have been hospitalized for an acute medical problem. During your stay at [facility], we have made an effort to correct the problem that brought you to the hospital while keeping you as comfortable as possible. Medications were used to bring your condition under control and your discharge instructions will include directions for any medications you should take after leaving the hospital. Please make sure you see your Primary Care Provider as part of your follow up plan. Activity: As commented below Non-emergency contact: Primary Care Provider Call non-emergency contact if: you have any medication questions, your symptoms worsen and your pain is not controlled Follow-up/Referrals: Gale Welch MD [Primary Care Provider] - Diet: Regular Addtl Attending Provider Instructions: You have been hospitalized for chest pain. ECHOCARDIOGRAM (ultrasound of the heart) was performed and did NOT show any wall motion abnormalities which would indicate damage to the heart. Cardiac enzymes were also checked and essentially negative and cardiology was consulted and did not feel any further workup is needed at this time. As discussed, this could be related to anxiety or muscloskeletal and should follow up with primary care and also recommend you keep a log of your blood pressures at home to take in follow up. You may not need any adjustments as they were well controlled while inpatient but should keep an eye on these and notify primary care if top number over 160 or bottom over 90-95. Please follow up with primary care in the next 7-10 days. Please return to the ER with any repeat chest pain, shortness of breath, fever, chills, or any other symptoms concerning for you. Take care! Pending Studies at Discharge: No Stand-Alone Forms: [facility], Smoking Cessation Medications and DC Order Prescriptions: Continued levothyroxine 200 mcg tablet 200 mcg PO QAM Qty: 90 3RF carvedilol 6.25 mg tablet 6.25 mg PO BID Qty: 180 3RF cholecalciferol (vitamin D3) [Vitamin D3] 50 mcg (2,000 unit) capsule 100 mcg PO QDL acetaminophen [Tylenol Extra Strength] 500 mg Tablet 1,000 mg PO DIRECTED PRN (Reason: PAIN/FEVER) levothyroxine 25 mcg tablet 25 mcg PO QAM valsartan 320 mg tablet 320 mg PO QAM Discharge Orders: Discharge Order (Routine); Ordered 10/06/24 Ordered By: Azalea Baker/Other Patient Handouts: Prediabetes, 5 Steps for Eating Healthier Admission Data Admit Date/Time: 10/05/24 20:44 Attending Provider: Heriberto Rosas Admit Provider: Derrick Pina Primary Care Provider: Gale Welch V. Other Providers: Derrick Pina; Ian Carson Other Interventions: Discharge Summary Assessment (RN) Last Done: 10/06/24 14:08 Hospital Stay Data Consultations 10/05/24 20:39 ED Decision to Admit Stat 10/06/24 08:05 Consult Cardiology Routine Diagnostic Imagining Performed Chest X-Ray 10/05/24 18:00 Exam(s): XR CXR 1 VIEW EXAM: XR Chest, 1 View CLINICAL HISTORY: Reason for exam: Chest pain, nonspecific. TECHNIQUE: Frontal view of the chest. COMPARISON: September 28, 2024 FINDINGS: Lungs: Unremarkable. No consolidation. Pleural space: Unremarkable. No pneumothorax. Heart: Borderline cardiomegaly, similar to previous. Mediastinum: Unremarkable. Normal mediastinal contour. Bones/joints: Mild osteophytosis in the lower thoracic spine. No acute fracture. Upper abdomen: Surgical clips in the right upper quadrant of the abdomen. No pneumoperitoneum under the diaphragm. IMPRESSION: Borderline cardiomegaly, similar to previous. No acute cardiopulmonary process is identified. Electronically signed by: Blaise Hernandez MD 10/05/24 20:39 PM ECHOCARDIOGRAM 10/06/24 LV systolic function is normal Grade I diastolic dysfunction (abnormal relaxation pattern). There is mild mitral regurgitation Discharge Instructions Given to Patient (Per Discharging Provider) You have been hospitalized for chest pain. ECHOCARDIOGRAM (ultrasound of the heart) was performed and did NOT show any wall motion abnormalities which would indicate damage to the heart. Cardiac enzymes were also checked and essentially negative and cardiology was consulted and did not feel any further workup is needed at this time. As discussed, this could be related to anxiety or muscloskeletal and should follow up with primary care and also recommend you keep a log of your blood pressures at home to take in follow up. You may not need any adjustments as they were well controlled while inpatient but should keep an eye on these and notify primary care if top number over 160 or bottom over 90-95. Please follow up with primary care in the next 7-10 days. Please return to the ER with any repeat chest pain, shortness of breath, fever, chills, or any other symptoms concerning for you. Take care! Supervising Physician Co-Signing Physician Notes The patient was not seen by me. The chart was reviewed. Case discussed with AUBRIE Ann. Agree with assessment and plan Total Time Total Time Spent Total Time Spent (In Minutes): 35 Coding Level of Care Code 63096 INP/OBS DISCH >30 MIN Diagnoses Chest pain, unspecified type R07.9 Chest pain type: unspecified Hypercalcemia E83.52
--- NOTE | 2024-10-06 13:58 | Electrocardiogram Report ---
Test Reason : Blood Pressure : */* mmHG Vent. Rate : 70 BPM Atrial Rate : 70 BPM P-R Int : 144 ms QRS Dur : 102 ms QT Int : 412 ms P-R-T Axes : 44 5 39 degrees QTcB Int : 444 ms Normal sinus rhythm Possible Left atrial enlargement Left ventricular hypertrophy Abnormal ECG When compared with ECG of 28-Sep-2024 22:07, No significant change was found Confirmed by Ina Carson ([id number]) on 10/06/2024 1:58:05 PM Referred By: Confirmed By: Ian Carson
[2024-10-06 14:09] VITALS: PULSE 73
== END 2024-10-06 14:37 | disposition home or self-care (01) ==
LOC: ED 16:22 → 2N 16:22 → SUATTDRO 20:44 → 2N 23:06